=== PATIENT | male | born 1975 | race Caucasian/White ===

== ENCOUNTER 2017-08-28 19:43 | Inpatient (IN) ==
[2017-08-28] MEDS ORDERED: FUROSEMIDE 40 MG/4 ML VIAL IV STA (20:43)
--- NOTE | 2017-08-28 21:06 | Emergency Department Note ---
Germaine Mensah Brittany, am scribing for, and in the presence of, Yakov Mclean MD 20:54. Caridad Mensah Charles R, MD, personally performed the services described in this documentation, ascribed by Sabrina Herron in my presence, and it is both accurate and complete . Arrival - Arrival Chief Complaint: Extremity Problem Stated Complaint: right foot swollen with discomfort ED Nursing Triage Note: Patient to triage with c/o BLE feet swelling that started 48 hours ago. Patient states this has happened in the past as a result of taking medications and standing on his feet for long periods of time. Patient noted to having pitting edema bilaterally and area of redness to right foot. Patient reports he currently takes fentanyl, dilaudid, vistaril, and zoloft. Mode of Arrival: Ambulatory Limitations: No Limitations Source: Patient, Family Time Seen by Provider: 08/28/17 20:23 - History of Present Illness HPI Narrative: This is a 41 y/o white male,who presents to the ED with c/o BLE edema and pain which started 2 days ago. He states the extremities are warm to the touch. He denies any calf tenderness. He states the right is worse than the left. He reports he takes Fentanyl, Dilaudid, Vistaril, and Zoloft. He reports he has noticed the edema, erythamous and pain start after a new medication is introduced. He reports he has been checked for DVT in the past. He states he unable to tell us if he actually had a blood clot. Pt denies taking Lasix. Pt has no other complaints/pain in the ED at this time. Pt denies a PMHx. Onset (ago): day(s) (Started 2 days ago) Consistency: constant Severity: moderate, similar to previous episodes Allergies/Adverse Reactions: Allergies Allergy/AdvReac Type Severity Reaction Status Date / Time No Known Allergies Allergy Verified 08/28/17 19:58 Home Medications: Home Medications Medication Instructions Recorded Confirmed Type Cyanocobalamin Inj [Vitamin B12 1,000 mcg IM TUTH 06/09/17 06/09/17 History Inj] Multivitamin [Multivitamins] 1 each PO DAILY 06/09/17 06/09/17 History Ketorolac Tab [Toradol Tab] 10 mg PO Q6H PRN #15 tablet 08/10/17 Rx Ondansetron Odt Tab [Zofran Odt] 4 mg SL Q4H PRN #15 tablet 08/10/17 Rx Loperamide Cap [Imodium Cap] 2 mg PO Q4HR PRN #12 capsule 08/12/17 Rx Ondansetron [Ondansetron Odt] 4 mg PO Q4H PRN #10 tab.rapdis 08/12/17 Rx Review of System - Review of System 12 point system: reviewed and no additional remarkable complaints except as stated - Review of System Musculoskeletal: Present: leg pain (BLE edema, erythamous and pain ) Medical,Surgical,& Family Hx - Medical History Gastrointestinal: History of: Ulcerative Colitis - Surgical History Abdominal Surgeries: Surgical HX of: Abdominal Surgery - Social History Smoking Status: Never smoker Frequency of Alcohol Use: None Type of Drug Use: None Exam Vital Signs: Vital Signs Temperature 98.2 F 08/28/17 19:51 Pulse Rate 94 H 08/28/17 19:51 Respiratory Rate 18 08/28/17 19:51 Blood Pressure 134/79 08/28/17 19:51 O2 Sat by Pulse Oximetry 97 08/28/17 19:51 - General General appearance: alert, in no apparent distress - Head Head exam: Present: normal inspection - Eye Eye exam: Present: PERRL, EOMI. Absent: nystagmus, miosis - Neck Neck exam: Present: full ROM, trachea midline. Absent: tenderness - Chest Chest inspection: Present: symmetric chest wall rise. Absent: tenderness - Respiratory Respiratory exam: Present: normal lung sounds bilaterally. Absent: respiratory distress - Cardiovascular Cardiovascular exam: Present: regular rate, normal rhythm, normal heart sounds. Absent: murmur, rubs, gallop, clicks, JVD - Abdominal Exam Abdominal exam: Present: soft, normal bowel sounds. Absent: tenderness - Rectal Exam Rectal exam: Present: normal inspection, normal rectal tone, heme (+) stool - Extremities Exam Extremities exam: Present: normal capillary refill, pedal edema (+3 pitting edema), other (Celluitis noted to the BLE, the BLE are warm to the touch). Absent: calf tenderness - Back Exam Back exam: Present: normal inspection, full ROM. Absent: tenderness, muscle spasm, rashes - Neurological Exam Neurological exam: Present: alert, oriented X3, CN II-XII intact, other (Mild slurred speech was noted possible secondary to over medication. ). Absent: motor sensory deficit - Psychiatric Psychiatric exam: Present: normal affect, normal mood. Absent: agitated, anxious, flat affect - Skin Skin exam: Present: warm, dry, intact, normal color. Absent: rash, cyanosis, diaphoresis Course - Consultations Consultation #1: Hospitalist will admit patient for cellulitis lower extremity and GI bleed Time: 22:41 Results - Labs CBC & BMP: 08/28/17 21:02 08/28/17 21:02 - Diagnostic Findings Procedure: Ultrasound: report reviewed by me (Venous Doopler Study: Normal, ther is no evidence of DVT.) Disposition Clinical Impression: Cellulitis, Lower extremity edema, History of Crohn's disease, GI bleed, Acute blood loss anemia, Chronic pain syndrome, Opiate dependence, continuous Case discussed with: patient, patient's family Disposition: Still a Patient Condition: Stable Time of Disposition: 22:42
[2017-08-28 21:16] LABS: Basophils # 0.1 10*3/uL (0.0-0.2); Eosinophils # 0.2 10*3/uL (0.0-0.87); Eosinophils % 4.3 % (0.00-10.9); Hematocrit 29.6 VOL% (42.0-52.0); Hemoglobin 9.6 GM/DL (14.0-18.0); Immature Granulocytes % 0.2 %; Immature Granulocytes Absolute 0.01 #; Lymphocytes # 1.4 10*3/uL (1.4-4.0); Lymphocytes % 27.6 % (21.2-54.2); Mean Corpuscular HGB Conc 32.4 GM/DL (32-36); Mean Corpuscular Hemoglobin 28 PG (27-34); Mean Corpuscular Volume 87.3 FL (87-102); Mean Platelet Volume 8.8 FL (9.6-12.0); Monocytes # 0.6 10*3/uL (0.11-0.8); Monocytes % 11.6 % (1.7-12.7); Neutrophils # 2.8 10*3/uL (1.4-7.4); Neutrophils % 55.3 % (38.7-73.9); Platelet Count 228 T/CUMM (130-400); Red Blood Count 3.39 MC/CUMM (3.8-5.5); White Blood Count 5.1 T/CUMM (4-12)
[2017-08-28] MEDS ORDERED: FUROSEMIDE 40 MG/4 ML VIAL ONE (21:16)
[2017-08-28 21:49] LABS: Alanine Aminotransferase 13 U/L (16-61); Albumin 2.7 G/DL (3.4-5.0); Alkaline Phosphatase 44 U/L (45-117); Aspartate Amino Transferase 14 U/L (0-37); Bilirubin,Total < 0.39 MG/DL (0.2-1.0); Blood Urea Nitrogen 8 MG/DL (7-18); Calcium 8.6 MG/DL (8.5-10.1); Glucose 109 MG/DL (74-106); Magnesium 1.8 MG/DL (1.8-2.4); Osmolality,Calculated 273.7 MOS/KG (273-304); Sodium 138 MMOL/L (136-145); Total Protein 6.4 G/DL (6.4-8.3); Uric Acid 6.2 MG/DL (3.5-7.2)
[2017-08-28 22:18] LABS: Sedimentation Rate-Westergren 90 MM/HR (0-15)
[2017-08-28] MEDS ORDERED: CEFTAROLINE 600 MG in SODIUM CHLORIDE 0.9% 100 ML IV STA (22:46)
[2017-08-28] MEDS ORDERED: CEFTAROLINE 600 MG VIAL IV ONE (23:27)
[2017-08-29] MEDS ORDERED: HYDROmorphone 2 MG/1 ML VIAL IV STA (01:20)
--- NOTE | 2017-08-29 01:32 | Hospitalist History & Physical ---
Assessment and Plan (1) Ulcerative colitis Status: Acute Current Visit: Yes (2) Cellulitis Status: Acute Current Visit: Yes (3) Lower extremity edema Status: Acute Current Visit: Yes (4) GI bleed Status: Acute Current Visit: Yes (5) Acute blood loss anemia Status: Acute Current Visit: Yes (6) Chronic pain syndrome Status: Acute Current Visit: Yes (7) Opiate dependence, continuous Status: Acute Assessment and plan: Patient will be admitted to our service. Going to recheck labs at 7 AM including a anemia workup. Will consult Dr. Mirza who is seeing this patient in the past although he does not follow him in clinic anymore for evaluation. Patient was heme positive in the ER per their exam. We will continue to treat the cellulitis. Continue home meds as appropriate. Current Visit: Yes History of Present Illness Chief complaint: Foot swelling History of present illness: Mr. Braden is a 41 year old male with past medical history of ulcerative colitis status post colon removal who presents to our ER today complaining of right foot pain swelling and redness. Patient reports that it started 48-72 hours ago. He has had foot swelling before but is never turned red like this time. It was warm to touch and tender. Patient has long-standing history of ulcerative colitis and multiple surgeries. He currently has a J-pouch. Patient was going to be discharged from the emergency room on outpatient treatment for cellulitis but when his labs came back he was found to be anemic and heme-positive. I was consulted for admission through the emergency room Home Medications Medication Instructions Recorded Confirmed Type ALPRAZolam [Alprazolam] 0.5 mg PO TID 08/29/17 08/29/17 History HYDROmorphone TAB [Dilaudid Tab] 4 mg PO Q4H 08/29/17 08/29/17 History fentaNYL [Fentanyl 75 mcg/hr Patch] 75 mcg TRANSDERM DIRECTED 08/29/17 History Allergies Allergy/AdvReac Type Severity Reaction Status Date / Time No Known Allergies Allergy Verified 08/28/17 19:58 Medical,Surgical,& Family Hx - Medical History Gastrointestinal: History of: Ulcerative Colitis - Surgical History Abdominal Surgeries: Surgical HX of: Abdominal Surgery - Family History Family History: Reports;: Family Hypertension - Social History Smoking Status: Never smoker Frequency of Alcohol Use: None Type of Drug Use: None 12 point system: reviewed and no additional remarkable complaints except as stated Exam - Constitutional Vitals: Period Temp Pulse Resp BP Sys/Wylie Pulse Ox Last 24 Hr 98.2 F-98.2 F 94-94 18-18 134-134/79-79 97 - General General appearance: alert, in no apparent distress - Head Head exam: Present: normal inspection - Eye Eye exam: Present: PERRL, EOMI. - Neck Neck exam: Present: full ROM, trachea midline. - Chest Chest inspection: Present: symmetric chest wall rise. - Respiratory Respiratory exam: Present: normal lung sounds bilaterally. - Cardiovascular Cardiovascular exam: Present: regular rate, normal rhythm, normal heart sounds. - Abdominal Exam Abdominal exam: Present: soft, normal bowel sounds. - Rectal Exam per ER physician Rectal exam: Present: normal inspection, normal rectal tone, heme (+) stool - Extremities Exam Extremities exam: Present: Patient has cellulitis noted on his right foot. There is lowered extremity edema present right greater than left - Back Exam Back exam: Present: normal inspection, full ROM. Absent: tenderness, muscle spasm, rashes - Neurological Exam Neurological exam: Present: alert, oriented X3, CN II-XII intact, - Psychiatric Psychiatric exam: Present: normal affect, normal mood. - Skin Skin exam: Present: warm, dry, intact, normal color. Results - Labs CBC & BMP: 08/28/17 21:02 08/28/17 21:02 Quality Measures - VTE Contraindication to Mechanical VTE Prophylaxis: Local Inflammation
[2017-08-29] MEDS ORDERED: HYDROmorphone 2 MG/1 ML VIAL ONE (01:41)
[2017-08-29] MEDS: HYDROmorphone 2 MG TABLET PO SCH ×6 (02:28→21:48)
[2017-08-29 03:42] LABS: Calcium 8.7 MG/DL (8.5-10.1); Osmolality,Calculated 276.4 MOS/KG (273-304); Potassium 3.7 MMOL/L (3.5-5.1)
[2017-08-29] MEDS: ONDANSETRON 4 MG/2 ML VIAL IV PRN ×4 (05:04→19:38)
[2017-08-29] MEDS ORDERED: ZINC OXIDE PASTE 113 GM TUBE TOP PRN (05:09)
[2017-08-29] MEDS ORDERED: INFLUENZA VIRUS VACCINE 0.5 ML SYRINGE IM ONE (05:09)
[2017-08-29] MEDS: DIPHENOXYLATE/ATROPINE 2.5-0.025 MG TABLET PO PRN ×3 (05:53→19:34)
--- NOTE | 2017-08-29 06:29 | Ultrasound Report ---
Exam: Bilateral lower extremity venous Doppler ultrasound Comparison: None Clinical history: Bilateral leg edema with redness Technique: Duplex scan of the lower extremity veins using B-mode/grayscale scaled imaging and Doppler spectral analysis and color flow. Findings: Major venous structures of the lower extremities demonstrate a normal course and caliber. Normal color-flow study and spectral analysis. There is normal compression and augmentation of bilateral common femoral, superficial femoral and popliteal veins. The proximal bilateral greater saphenous veins appear to be patent. Impression: No evidence to suggest deep venous thrombosis within either lower extremity. Ultrasound images were captured and stored. PROCEDURE INTERPRETED AT [facility] DEPARTMENT OF RADIOLOGY Final Report Signed by: Dr. Maddy Willett
[2017-08-29 07:37] LABS: Basophils % 0.8 % (0.0-0.8); Eosinophils # 0.2 10*3/uL (0.0-0.87); Eosinophils % 4.6 % (0.00-10.9); Hematocrit 28.8 VOL% (42.0-52.0); Hemoglobin 9.7 GM/DL (14.0-18.0); Lymphocytes # 1.4 10*3/uL (1.4-4.0); Lymphocytes % 27.5 % (21.2-54.2); Mean Corpuscular HGB Conc 33.7 GM/DL (32-36); Mean Corpuscular Hemoglobin 29 PG (27-34); Mean Corpuscular Volume 86.5 FL (87-102); Mean Platelet Volume 9.1 FL (9.6-12.0); Monocytes # 0.6 10*3/uL (0.11-0.8); Monocytes % 11.8 % (1.7-12.7); Neutrophils # 2.8 10*3/uL (1.4-7.4); Neutrophils % 55.3 % (38.7-73.9); Platelet Count 243 T/CUMM (130-400); Red Blood Count 3.33 MC/CUMM (3.8-5.5); Red Cell Distribution Width 13.9 % (9.3-17.3)
[2017-08-29 08:12] LABS: % Iron Saturation 7.8 % (18-50)
[2017-08-29 08:22] LABS: Folate 14.9 NG/ML (5.4-24.0)
--- NOTE | 2017-08-29 08:46 | Gastrointestinal Consult Note ---
<Brigitte Vergara - Last Filed: 08/29/17 08:39> Assessment and Plan (1) Anemia Status: Acute Assessment and plan: 08/29-admitted with swelling to bilateral lower extremities with findings of heme positive stools and anemia as stated below. Prior history of anemia with oral iron supplementation per patient. No prior history of blood transfusions. Extensive history of abdominal surgeries as noted below due to ulcerative colitis. No reports of overt bleeding. Plan an addendum to followed by Dr. Mirza. Current Visit: Yes History of Present Illness Chief complaint: Heme positive stools, anemia History of present illness: Mr. Braden is a 41 year old male who was admitted to the hospital last night with complaints of swelling to his lower extremities. Patient reported that approximately 2 days ago he began having increased edema and redness to his lower feet and legs. He also complained of some warmth to touch however he had no complaints of tenderness. Upon evaluation in the emergency room, he was also noted to be heme positive stools as well as anemic. Patient has a very complicated history of ulcerative colitis with a total colectomy and ileostomy in 2002. Patient underwent reversal of this in 2010 and had a J-pouch at that time. Patient is followed regularly by a surgeon in [place]. Patient states that he has been on iron therapy in the past and is currently taking iron supplements. He states he has been anemic for several years but denies history of blood transfusion. He denies any history of overt bleeding other than occasional small amount of bright red tissue on the toilet paper. Patient denies any upper GI symptoms including GERD, dysphagia, dyspepsia, or epigastric pain. He denies any NSAID use. He denies any recent weight loss. He cannot recall his last upper endoscopy but denies a history of peptic ulcer disease in the past. He has had multiple abdominal surgeries in the past and states that his last attempt at a colonoscopy was 2 years ago however was unsuccessful. He was then referred back to his surgeon in [place] he felt he did not need to undergo any endoscopic procedures at that time. Patient states he has been doing fairly well and has had no real changes in his usual bowel pattern which he states is fairly loose stools that at times require antidiarrheal medications. He states he has noticed his stools have been dark off and on but states he can relate this to the timing of taking Imodium and Pepto-Bismol. On admission his H&H was 08/29. BUN/creatinine ratio is normal at 10. Iron studies noted to show a low iron is 16, a low TIBC at 204, and oxygen saturation down to 7.8. His B12 level is normal as well as his folate level however he does have a history in the past of taking B12 injections. CRP is elevated at 3.6. Home Medications Medication Instructions Recorded Confirmed Type ALPRAZolam [Alprazolam] 0.5 mg PO TID 08/29/17 08/29/17 History HYDROmorphone TAB [Dilaudid Tab] 4 mg PO Q4H 08/29/17 08/29/17 History fentaNYL [Fentanyl 75 mcg/hr Patch] 75 mcg TRANSDERM DIRECTED 08/29/17 History Allergies Allergy/AdvReac Type Severity Reaction Status Date / Time No Known Allergies Allergy Verified 08/28/17 19:58 Medical,Surgical,& Family Hx - Medical History Gastrointestinal: History of: Ulcerative Colitis - Surgical History HEENT Surgeries: Surgical HX of: Tonsilectomy & Adenoidectomy Abdominal Surgeries: Surgical HX of: Abdominal Surgery Reproductive Surgeries: Patient denies;: Genitourinary Surgery - Family History Family History: Reports;: Family Hypertension - Social History Smoking Status: Never smoker Frequency of Alcohol Use: None Type of Drug Use: None 12 point system: reviewed and no additional remarkable complaints except as stated - Constitutional Constitutional: Present: as per HPI - EENT Eyes: Present: as per HPI Ears: Present: as per HPI Nose, mouth and throat: Present: as per HPI - Cardiovascular Cardiovascular: Present: as per HPI - Respiratory Respiratory: Present: as per HPI - Gastrointestinal Gastrointestinal: Present: as per HPI - Genitourinary Genitourinary: Present: as per HPI - Musculoskeletal Musculoskeletal: Present: as per HPI, other (Edema) - Neurological Neurological: Present: as per HPI - Psychiatric Psychiatric: Present: as per HPI - Endocrine Endocrine: Present: as per HPI - Hematologic/Lymphatic Hematologic/Lymphatic: Present: as per HPI Exam - Constitutional Vitals: Period Temp Pulse Resp BP Sys/Wylie Pulse Ox Last 24 Hr 98.2 F-98.6 F 73-94 18-20 114-134/57-79 96-98 General appearance: normal weight, no acute distress - Head Head exam: Present: normal inspection, normocephalic - Eye Eye exam: Present: other (Lids and conjunctivae are unremarkable). Absent: scleral icterus - ENT ENT exam: Present: normal exam, normal oropharynx - Neck Neck exam: Present: normal inspection - Respiratory Respiratory exam: Present: clear to auscultation bilaterally. Absent: rales, rhonchi, wheezes - Cardiovascular Cardiovascular exam: Present: regular rate and rhythm. Absent: diastolic murmur , JVD, systolic murmur - GI/Abdominal GI/Abdominal exam: Present: normal bowel sounds, soft. Absent: ascites, distended, mass, organomegaly, tenderness - Extremities Exam Extremities exam: Present: normal inspection, full ROM, edema - Back Exam Back exam: Present: normal inspection - Neurological Exam Neurological exam: Present: alert, oriented X3 - Psychiatric Psychiatric exam: Present: normal affect, normal mood - Skin Skin exam: Present: normal color, warm, dry Results - Labs CBC & BMP: 08/29/17 06:48 08/29/17 02:38 Lab Results: I have reviewed the past 24 hour labs Quality Measures - VTE Contraindication to Mechanical VTE Prophylaxis: Local Inflammation <Bud Mirza - Last Filed: 08/29/17 13:34> History of Present Illness History of present illness: Mr. Braden is a 41 year old male Exam - Constitutional Vitals: Period Temp Pulse Resp BP Sys/Wylie Pulse Ox Last 24 Hr 97 F-98.6 F 56-94 18-20 96-134/55-79 92-98 Results - Labs CBC & BMP: 08/29/17 06:48 08/29/17 02:38
--- NOTE | 2017-08-29 09:01 | Hospitalist Progress Note ---
Hospitalist: Subjective Interval history: Patient admitted for right foot cellulitis. He states that the pain and swelling of his feet are unchanged. He denies any SOB. He had 4 episodes of loose watery stools overnight but since he has been eating, diarrhea has resolved. He denies any bloody stools. He has some abdominal pain. He denies any nausea or vomiting. Exam - Constitutional Vitals: Period Temp Pulse Resp BP Sys/Wylie Pulse Ox Last 24 Hr 98.2 F-98.6 F 73-94 18-20 114-134/57-79 96-98 General appearance: no acute distress, over weight - Head Head exam: Present: normal inspection - Eye Eye exam: Present: EOMI Pupils: Present: CONSTANTINO - ENT ENT exam: Present: normal exam - Respiratory Respiratory exam: Present: clear to auscultation bilaterally. Absent: rales, rhonchi, wheezes - Cardiovascular Cardiovascular exam: Present: regular rate and rhythm. Absent: diastolic murmur , systolic murmur - GI/Abdominal GI/Abdominal exam: Present: normal bowel sounds, tenderness, soft, other ( diffuse abdominal tenderness without any guarding or rebound). Absent: guarding , rebound - Extremities Exam Extremities exam: Present: full ROM, other (mild bilateral ankle swelling with patch of erythema on right dorsum of foot; normal ROM of ankles) - Psychiatric Psychiatric exam: Present: normal affect, normal mood - Skin Skin exam: Present: normal color, warm Results - Labs CBC & BMP: 08/29/17 06:48 08/29/17 02:38 - Impressions 1. Right foot cellulitis: on antibiotic; bcx pending 2. Bilateral ankle swelling: will consult ortho for possible aspiration; check uric acid; BLE venous doppler negative 3. ABLA: patient's HCT on 08/12/17 was 43; currently, it is 29. Check ferritin 4. B12 deficiency: relative; replete 5. h/o ulcerative colitis: appreciate help from GI 6. Heme-positive stools 8. Suspected GIB 9. h/o Chronic pain syndrome 10. h/o opioid dependence, continuous Plan: as noted above; monitor h/h; obtain echo; continue PPI Quality Measures - VTE Contraindication to Mechanical VTE Prophylaxis: Local Inflammation
[2017-08-29] MEDS: fentaNYL 75 MCG/HR PATCH TRANSDERM SCH (09:07)
[2017-08-29] MEDS: ALPRAZolam 0.5 MG TABLET PO SCH ×3 (09:07→21:46)
[2017-08-29] MEDS: PANTOPRAZOLE 40 MG TABLET PO SCH (09:07)
--- NOTE | 2017-08-29 11:47 | Orthopedic Consult Note ---
History of Present Illness Chief complaint: Chief complaint is bilateral ankle pain History of present illness: Mr. Braden is a 41 year old male who was admitted yesterday with ankle pain bilateral but worse on the right. Because of rash or edema which is actually in both legs more so on the right there is a concern of cellulitis. He has been started on cephalosporin antibiotics. Orthopedics is consulted because of concern that he might have a septic joint. On questioning he does have a remote history of gout and has been on zyloprim years ago. Home Medications Medication Instructions Recorded Confirmed Type ALPRAZolam [Alprazolam] 0.5 mg PO TID 08/29/17 08/29/17 History HYDROmorphone TAB [Dilaudid Tab] 4 mg PO Q4H 08/29/17 08/29/17 History fentaNYL [Fentanyl 75 mcg/hr Patch] 75 mcg TRANSDERM DIRECTED 08/29/17 History Allergies Allergy/AdvReac Type Severity Reaction Status Date / Time No Known Allergies Allergy Verified 08/28/17 19:58 Medical,Surgical,& Family Hx - Medical History Gastrointestinal: History of: Ulcerative Colitis - Surgical History HEENT Surgeries: Surgical HX of: Tonsilectomy & Adenoidectomy Abdominal Surgeries: Surgical HX of: Abdominal Surgery Reproductive Surgeries: Patient denies;: Genitourinary Surgery - Family History Family History: Reports;: Family Hypertension - Social History Smoking Status: Never smoker Frequency of Alcohol Use: None Type of Drug Use: None Exam - Constitutional Vitals: Period Temp Pulse Resp BP Sys/Wylie Pulse Ox Last 24 Hr 98.2 F-98.6 F 73-94 18-20 114-134/57-79 96-98 Exam: He has bilateral lower extremity edema however no joint effusion of significance that I can determine. His right foot is more symptomatic than the left. He has a rash over the right third fourth and fifth metatarsals and maximum tenderness in that area. - Extremities Exam Extremities exam: Present: normal inspection Results - Labs CBC & BMP: 08/29/17 06:48 08/29/17 02:38 Assessment and Plan (1) Gout, probable Status: Acute Assessment and plan: I have spoken with the hospitalist. I think the orthopedic conditions that is causing the pain is more likely gout. He does have a past history of that although his was in the distant past. To confuse the situation he does have peripheral edema bilaterally he does have bilateral ankle pain but most of his symptoms are in the right foot mid metatarsal area. He is not febrile and he does not have elevated white count which mitigates against infectious process. Nevertheless he is covered with IV antibiotics for that possibility. Dr. Vicente has kindly agreed to order MRI of the right foot and ankle and a stat uric acid. I will review that later today. With the patient's GI history NSAIDs are probably contraindicated so course of steroids might be helpful on an acute basis if it does look like a gout attack we can address an elevated uric acid later if that turns out to be the case Current Visit: Yes
[2017-08-29] MEDS ORDERED: DEXAMETHASONE 4 MG/1 ML VIAL IV ONE (11:54)
[2017-08-29] MEDS: CEFTAROLINE 600 MG in SODIUM CHLORIDE 0.9% 50 ML IV SCH (11:59)
--- NOTE | 2017-08-29 16:28 | Magnetic Resonance Report ---
MRI right foot Indication: Foot wound Technique: Axial sagittal coronal imaging of the forefoot is performed both prior to and after contrast. Contrast dose is 20 cc Dotarem. Findings: There is edema and swelling of the soft tissues of the dorsal surface of the forefoot. No focal fluid collection or abnormal enhancement is seen. Osseous of marrow signal is normal. No evidence of tendon or muscle signal abnormality is identified. No other abnormality seen. Impression: Soft tissue edema and swelling of the dorsal soft tissues of the forefoot may indicate cellulitis. No other acute findings. PROCEDURE INTERPRETED AT [facility] DEPARTMENT OF RADIOLOGY Final Report Signed by: Dr. Henri Clemens
[2017-08-30] MEDS: CEFTAROLINE 600 MG in SODIUM CHLORIDE 0.9% 50 ML IV SCH ×3 (00:22→22:18)
[2017-08-30] MEDS: ONDANSETRON 4 MG/2 ML VIAL IV PRN ×3 (02:03→21:21)
[2017-08-30] MEDS: HYDROmorphone 2 MG TABLET PO SCH ×6 (02:04→22:07)
[2017-08-30 06:15] LABS: Basophils % 0.2 % (0.0-0.8); Eosinophils % 0.2 % (0.00-10.9); Hematocrit 28.6 VOL% (42.0-52.0); Hemoglobin 9.4 GM/DL (14.0-18.0); Immature Granulocytes % 0.3 %; Immature Granulocytes Absolute 0.02 #; Lymphocytes # 0.9 10*3/uL (1.4-4.0); Lymphocytes % 13.8 % (21.2-54.2); Mean Corpuscular HGB Conc 32.9 GM/DL (32-36); Mean Corpuscular Hemoglobin 29 PG (27-34); Mean Corpuscular Volume 87.2 FL (87-102); Mean Platelet Volume 9.1 FL (9.6-12.0); Monocytes # 0.4 10*3/uL (0.11-0.8); Monocytes % 5.6 % (1.7-12.7); Neutrophils # 5.2 10*3/uL (1.4-7.4); Neutrophils % 79.9 % (38.7-73.9); Platelet Count 221 T/CUMM (130-400); Red Blood Count 3.28 MC/CUMM (3.8-5.5); Red Cell Distribution Width 13.9 % (9.3-17.3); White Blood Count 6.5 T/CUMM (4-12)
[2017-08-30 06:49] LABS: Calcium 8.6 MG/DL (8.5-10.1); Ferritin 23.9 ng/ml (26-388); Magnesium 1.9 MG/DL (1.8-2.4); Osmolality,Calculated 281.3 MOS/KG (273-304)
--- NOTE | 2017-08-30 08:12 | Orthopedic Progress Note ---
Assessment and Plan (1) Gout, probable Status: Acute Assessment and plan: I have spoken with the hospitalist. I think the orthopedic conditions that is causing the pain is more likely gout. He does have a past history of that although his was in the distant past. To confuse the situation he does have peripheral edema bilaterally he does have bilateral ankle pain but most of his symptoms are in the right foot mid metatarsal area. He is not febrile and he does not have elevated white count which mitigates against infectious process. Nevertheless he is covered with IV antibiotics for that possibility. Dr. Vicente has kindly agreed to order MRI of the right foot and ankle and a stat uric acid. I will review that later today. With the patient's GI history NSAIDs are probably contraindicated so course of steroids might be helpful on an acute basis if it does look like a gout attack we can address an elevated uric acid later if that turns out to be the case Current Visit: Yes Orthopedics - Subjective Interval history: The patient's today is alert oriented and ambulating better. His pain and swelling and tenderness in the right foot is diminished. Lab: He has had 2 uric acids both of which are clearly normal. This mitigates against gout. His MRI shows soft tissue swelling in the right foot compatible with cellulitis. Of note is that there is not any abscess formation or suggestion of osteomyelitis Orthopedic impression: Everything points to this being a cellulitis which is responding to antibiotics he is on from the hospitalist. No surgical indications. Reconsult me if needed Exam - Constitutional Vitals: Period Temp Pulse Resp BP Sys/Wylie Pulse Ox Last 24 Hr 97 F-98.6 F 54-117 14-20 96-141/51-81 91-96 Results - Labs CBC & BMP: 08/30/17 05:20 08/30/17 05:20 Quality Measures - VTE Contraindication to Mechanical VTE Prophylaxis: Local Inflammation
[2017-08-30] MEDS: CYANOCOBALAMIN 1000 MCG/1 ML VIAL IM SCH (09:16)
[2017-08-30] MEDS: ALPRAZolam 0.5 MG TABLET PO SCH ×3 (09:19→21:22)
[2017-08-30] MEDS: PANTOPRAZOLE 40 MG TABLET PO SCH (09:19)
[2017-08-30] MEDS ORDERED: PRAMOXINE/HYDROCORTISONE RECTAL FOAM 10 GM CAN RECTAL PRN (10:55)
--- NOTE | 2017-08-30 13:05 | Order Completion Report ---
See report scanned to EMR
--- NOTE | 2017-08-30 13:27 | Hospitalist Progress Note ---
Hospitalist: Subjective Interval history: Patient has no complaints other than being sleepy. Pain is controlled with pain medications. Exam - Constitutional Vitals: Period Temp Pulse Resp BP Sys/Wylie Pulse Ox Last 24 Hr 97.6 F-98.6 F 54-117 14-20 100-141/51-81 91-96 General appearance: no acute distress - Head Head exam: Present: normal inspection, normocephalic - Eye Eye exam: Present: EOMI. Absent: conjunctival injection Pupils: Present: CONSTANTINO - Respiratory Respiratory exam: Present: clear to auscultation bilaterally. Absent: rales, rhonchi, wheezes - Cardiovascular Cardiovascular exam: Present: regular rate and rhythm - GI/Abdominal GI/Abdominal exam: Present: normal bowel sounds, soft. Absent: tenderness - Extremities Exam Extremities exam: Present: edema (bilateral ankle swelling; normal ROM; decreased erythema on dorsum of right foot) Results - Labs CBC & BMP: 08/30/17 05:20 08/30/17 05:20 - Impressions 1. Right foot cellulitis: MRI showed cellulitis; appreciate help from orthopedics. Blood cultures show no growth. Continue ceftaroline. 2. Bilateral ankle swelling: no gout; BLE venous doppler negative; echo pending 3. ABLA: patient's HCT on 08/12/17 was 43; it is lower but has been stable; appreciate help from GI; no intervention at this time 4. Iron deficiency: will start on venofer; oral tablets upon discharge 5. B12 deficiency: relative; replete 6. h/o ulcerative colitis: appreciate help from GI; not in an acute exacerbation 6. Heme-positive stools 7. h/o Chronic pain syndrome 8. h/o opioid dependence, continuous Plan: as noted above; if stable, can discharge tomorrow on bactrim and follow up with [facility] Quality Measures - VTE Contraindication to Mechanical VTE Prophylaxis: Local Inflammation
[2017-08-30] MEDS ORDERED: IRON SUCROSE 200 MG in SODIUM CHLORIDE 0.9% 100 ML IV SCH (14:00)
[2017-08-30] MEDS: DIPHENOXYLATE/ATROPINE 2.5-0.025 MG TABLET PO PRN ×2 (18:25→22:08)
[2017-08-31] MEDS: ONDANSETRON 4 MG/2 ML VIAL IV PRN (06:14)
[2017-08-31] MEDS: HYDROmorphone 2 MG TABLET PO SCH ×3 (06:14→09:47)
[2017-08-31] MEDS: DIPHENOXYLATE/ATROPINE 2.5-0.025 MG TABLET PO PRN (06:14)
[2017-08-31 06:45] LABS: Basophils % 0.6 % (0.0-0.8); Eosinophils # 0.3 10*3/uL (0.0-0.87); Eosinophils % 5.3 % (0.00-10.9); Hematocrit 28.3 VOL% (42.0-52.0); Hemoglobin 8.9 GM/DL (14.0-18.0); Immature Granulocytes % 0.2 %; Immature Granulocytes Absolute 0.01 #; Lymphocytes # 1.8 10*3/uL (1.4-4.0); Lymphocytes % 35.4 % (21.2-54.2); Mean Corpuscular HGB Conc 31.4 GM/DL (32-36); Mean Corpuscular Hemoglobin 28 PG (27-34); Mean Platelet Volume 9.2 FL (9.6-12.0); Monocytes # 0.5 10*3/uL (0.11-0.8); Monocytes % 9.4 % (1.7-12.7); Neutrophils # 2.5 10*3/uL (1.4-7.4); Neutrophils % 49.1 % (38.7-73.9); Platelet Count 241 T/CUMM (130-400); Red Blood Count 3.18 MC/CUMM (3.8-5.5); Red Cell Distribution Width 14.3 % (9.3-17.3); White Blood Count 5.1 T/CUMM (4-12)
[2017-08-31 07:26] LABS: Calcium 8.3 MG/DL (8.5-10.1); Potassium 4.1 MMOL/L (3.5-5.1)
[2017-08-31] MEDS: IRON SUCROSE 200 MG in SODIUM CHLORIDE 0.9% 100 ML IV SCH ×2 (07:48→09:52)
[2017-08-31] MEDS: fentaNYL 75 MCG/HR PATCH TRANSDERM SCH (09:49)
[2017-08-31] MEDS: ALPRAZolam 0.5 MG TABLET PO SCH (09:51)
[2017-08-31] MEDS: CYANOCOBALAMIN 1000 MCG/1 ML VIAL IM SCH (09:51)
[2017-08-31] MEDS: PANTOPRAZOLE 40 MG TABLET PO SCH (09:51)
[2017-08-31 10:47] VITALS: BP 108/61
--- NOTE | 2017-08-31 11:10 | Discharge Summary ---
<Nico Veronica - Last Filed: 08/31/17 11:00> Hospital Course - Hospital Course Hospital Course: Mr. Braden is a 41 year old male with past medical history of ulcerative colitis status post colon removal who presented to our ER on 08/29/2017 complaining of right foot pain swelling and redness. Patient was admitted to the hospital medicine service for further evaluation and treatment. On admission, he was found to be anemic with suspicion of a GI bleed and to have cellulitis of the RLE. GI was consulted and found no need for an extensive GI workup at this time. His cellulitis was treated with Teflaro and his pain was adequately managed with dilaudid and fentanyl. Patient did have a VANDANA done while hospitalized which revealed an estimated EF of 65% with no significant valvular abnormalities noted. At this time, the patient has reached maximum benefit from hospitalization and is stable for discharge home. He is discharged on keflex 500 mg PO Q12H for 7 days. He should follow up with his PCP in 1-2 weeks. Discharge Plan - Discharge Data Disposition: Disch To Home/Self Care Condition at Discharge: Stable Discharge Diet: heart healthy Activity: increase activity as tolerated Hygiene: no restrictions Weight Bearing at Discharge: weight bear as tolerated Driving: no restrictions Contact your physician if you experience:: fever over 101, Redness or swelling, Shortness of breath, pain uncontrolled by pain medications - Discharge Medications New Pantoprazole Tab [Protonix Tab] 40 mg PO DAILY #30 tablet Pramoxine/Hc Rectal Foam [Proctofoam HC Rectal Foam] 1 applic RECTAL TID PRN #30 applic PRN Reason: Hemorrhoids cephALEXin [Keflex] 500 mg PO Q12HR #14 capsule Continue HYDROmorphone TAB [Dilaudid Tab] 4 mg PO Q4H ALPRAZolam [Alprazolam] 0.5 mg PO TID fentaNYL [Fentanyl 75 mcg/hr Patch] 75 mcg TRANSDERM DIRECTED - Follow Up or Referral - Forms/Instructions Instructions: Cellulitis (DC), Anemia (DC) Exam - Constitutional Vitals: Period Temp Pulse Resp BP Sys/Wylie Pulse Ox Last 24 Hr 97.7 F-98.5 F 64-98 16-18 90-132/53-79 91-96 General appearance: over weight - Head Head exam: Present: normocephalic, atraumatic - Eye Eye exam: Present: EOMI Pupils: Present: CONSTANTINO - ENT ENT exam: Present: normal oropharynx - Neck Neck exam: Present: normal inspection - Respiratory Respiratory exam: Present: clear to auscultation bilaterally - Cardiovascular Cardiovascular exam: Present: regular rate and rhythm - GI/Abdominal GI/Abdominal exam: Present: normal bowel sounds, soft - Extremities Exam Extremities exam: Present: full ROM, other (Minimal leg edema with resolved cellulitis. Noted venous markings on top of the right foot.) - Neurological Exam Neurological exam: Present: alert, oriented X3, CN II-XII intact - Psychiatric Psychiatric exam: Present: normal affect, normal mood - Skin Skin exam: Present: warm, dry Discharge Results Procedures and tests throughout hospitalization: Pending Orders 08/28/17 21:07 Blood Culture Stat Labs on day of discharge: Labs from last 24 hours 08/31/17 08/31/17 06:05 06:05 WBC 5.1 RBC 3.18 L Hgb 8.9 L Hct 28.3 L MCV 89.0 MCH 28 MCHC 31.4 L RDW 14.3 Plt Count 241 MPV 9.2 L Neut % (Auto) 49.1 Lymph % (Auto) 35.4 Union % (Auto) 9.4 Eos % (Auto) 5.3 Baso % (Auto) 0.6 Neut # (Auto) 2.5 Lymph # (Auto) 1.8 Union # (Auto) 0.5 Eos # (Auto) 0.3 Baso # (Auto) 0.0 Immature Gran % 0.2 Nucleated RBC % 0.0 Immature Gran # 0.01 Nucleated RBCs # 0.00 Immature Plt Fraction 0.0 Sodium 143 Potassium 4.1 Chloride 108 H Carbon Dioxide 30 Anion Gap 9.1 BUN 14 Creatinine 0.80 GFR Calculation 150 BUN/Creatinine Ratio 17.00 Glucose 93 Calculated Osmolality 285.0 Calcium 8.3 L Magnesium 2.0 Preliminary micro results at discharge 08/28/17 21:07 Blood Culture - Preliminary Blood No growth at 1 day 08/28/17 21:07 Blood Culture - Preliminary Blood No growth at 1 day DS: Provider Date of admission: 08/29/17 01:21 Primary care physician: . No PCP Attending physician on admission: Benjamin Esparza MD Consults: 08/29/17 01:21 Consult to Physician [CONS] Routine Comment: Heme positive stool in a patient known to you Consulting Provider: Bud Mirza When should Consulting Provider be notified: In am Person Notified: Brigitte APARICIO Date Notified: 08/29/17 Time Notified: 09:04 08/29/17 09:08 Consult to Physician [CONS] Routine Comment: bilateral ankle swelling; evalute for aspiration Consulting Provider: Michael Garcias When should Consulting Provider be notified: Now Person Notified: Date Notified: 08/29/17 Time Notified: 10:40 Discharging clinician: Nico Veronica MD <Bonifacio Man - Last Filed: 08/31/17 11:42> Hospital Course - Time spent with patient Time with patient DS: Greater than 30 minutes DS: Provider Expected date of discharge: 08/31/17
[2017-08-31] MEDS: CEFTAROLINE 600 MG in SODIUM CHLORIDE 0.9% 50 ML IV SCH (11:50)
== END 2017-08-31 12:05 | disposition home or self-care (01) | DRG 603 ==
LOC: N.ED 19:43 → SUATTDRO 08-29 01:21 → N.5E 08-29 01:21
PROVIDERS: ADMIT Internal Medicine; ATTEND Internal Medicine Infectious Disease